=== PATIENT | female | born 1980 | race Two or more races ===

== ENCOUNTER 2023-12-02 07:49 | Emergency (ER) | payer MEDICAID, OTHER ==
[~2023-12-02] VITALS: Ht 162.6 cm; Wt 84.0 kg
[2023-12-02] MEDS ORDERED: HYDR-4902 PO (09:39)
[2023-12-02] MEDS ORDERED: CEPH250C PO (09:39)
[2023-12-02] MEDS: HYDROcodone-ACET 10/325MG TAB PO ONE (09:59)
[2023-12-02 10:01] VITALS: PULSE 92; RESP 18; O2SAT 97
[2023-12-02] MEDS: ceFAZolin 1GM/50ML 50 ML IV ONE (10:29)
[2023-12-02 11:10] VITALS: BP 155/97; PULSE 85; RESP 18; TEMP 97.9; O2SAT 98
== END 2023-12-02 11:12 | disposition home or self-care (01) ==
LOC: ER 07:49 → EDBD 07:49 → ER 11:12
DX: S02.2XXA Fracture of nasal bones, initial encounter for closed fracture (principal); S09.8XXA Other specified injuries of head, initial encounter; Z98.51 Tubal ligation status; Y04.2XXA Assault by strike against or bumped into by another person, initial encounter; Y93.89 Activity, other specified; Y92.89 Other specified places as the place of occurrence of the external cause; Y99.8 Other external cause status
CPT/HCPCS: 70450; 70486; 72125; 96365; 99285; J0690